=== PATIENT | female | born 1980 | race Caucasian/White ===

== ENCOUNTER 2018-02-06 08:16 | Emergency (ER) | payer MEDICAID, OTHER ==
[2018-02-06] MEDS ORDERED: NORMAL SALINE 1000 ML 1,000 ML IV ONE (08:27)
[2018-02-06] MEDS ORDERED: ONDANSETRON 4 MG TAB.RAPDIS PO ONE (08:30)
[2018-02-06 08:35] VITALS: BP 94/78
--- NOTE | 2018-02-06 13:58 | ER Document Report ---
ED General - General Chief Complaint: ETOH Abuse Stated Complaint: POSSIBLE SEIZURE Time Seen by Provider: 02/06/18 08:26 TRAVEL OUTSIDE OF THE U.S. IN LAST 30 DAYS: No - HPI Patient complains to provider of: EtOH Notes: Patient coming in via EMS for possible seizure patient also has a history of EtOH abuse. EMS states no seizure activity noted upon arrival. Upon my evaluation patient is lying on her stomach sleeping easily arousable. Patient does smell of alcohol. Patient upon awakening there is demanding Ativan and Valium as that she states that she is going through withdrawals. Patient states last time she had any alcohol drink was approximately 1 hour prior to her arrival here to the ER. Patient also states she is having some nausea vomiting. Patient otherwise is disheveled smells of alcohol no signs of any obvious distress no signs of obvious EtOH withdrawals - Related Data Allergies/Adverse Reactions: hydromorphone HCl [From Dilaudid] Allergy (Verified 07/08/12 19:48) itching morphine [Morphine] Adverse Reaction (Verified 07/08/12 19:48) Nausea Past Medical History - Social History Smoking Status: Current Every Day Smoker Frequency of alcohol use: Heavy Drug Abuse: None Family History: Reviewed & Not Pertinent Patient has suicidal ideation: No Patient has homicidal ideation: No Neurological Medical History: Reports: Hx Migraine, Hx Seizures - ETOH withdrawal Renal/ Medical History: Reports: Hx Peritoneal Dialysis GI Medical History: Reports: Hx Gastroesophageal Reflux Disease Psychiatric Medical History: Reports: Hx Bipolar Disorder, Hx Depression Past Surgical History: Reports: Hx Cholecystectomy - Immunizations Hx Diphtheria, Pertussis, Tetanus Vaccination: Yes Review of Systems - Review of Systems Constitutional: No symptoms reported EENT: No symptoms reported Cardiovascular: No symptoms reported Respiratory: No symptoms reported Gastrointestinal: Nausea, Vomiting Genitourinary: No symptoms reported Female Genitourinary: No symptoms reported Musculoskeletal: No symptoms reported Skin: No symptoms reported Hematologic/Lymphatic: No symptoms reported Neurological/Psychological: No symptoms reported -: Yes All other systems reviewed and negative Physical Exam - Vital signs Vitals: Temp Pulse Resp BP Pulse Ox 98.1 F 101 H 20 94/78 L 98 02/06/18 08:34 02/06/18 08:34 02/06/18 08:34 02/06/18 08:34 02/06/18 08:34 Interpretation: Normal - General General appearance: Alert, Other - Disheveled Notes: Smells of alcohol - HEENT Head: Normocephalic, Atraumatic Eyes: Normal Pupils: PERRL - Respiratory Respiratory status: No respiratory distress Chest status: Nontender Breath sounds: Normal Chest palpation: Normal - Cardiovascular Rhythm: Regular Heart sounds: Normal auscultation Murmur: No - Abdominal Inspection: Normal Distension: No distension Bowel sounds: Normal Tenderness: Nontender Organomegaly: No organomegaly - Back Back: Normal, Nontender - Extremities General upper extremity: Normal inspection, Nontender, Normal color, Normal ROM , Normal temperature General lower extremity: Normal inspection, Nontender, Normal color, Normal ROM , Normal temperature, Normal weight bearing. No: Margarita's sign - Neurological Neuro grossly intact: Yes Cognition: Normal [place] Coma Scale Eye Opening: Spontaneous John Coma Scale Verbal: Oriented [place] Coma Scale Motor: Obeys Commands John Coma Scale Total: 15 Speech: Normal Motor strength normal: LUE, RUE, LLE, RLE Sensory: Normal - Psychological Associated symptoms: Normal affect, Normal mood - Skin Skin Temperature: Warm Skin Moisture: Dry Skin Color: Normal Course - Re-evaluation Re-evalutation: 02/06/18 13:55 Patient during examination HPI process is very demanding that she receives Ativan or Valium for her acute alcohol withdrawals. Explained to the patient her examination otherwise normal self or smelling of alcohol patient complains of nausea vomiting states that the patient that we will give her medications to help out with her nausea vomiting however at this time and to receive her laboratory values and monitor the patient for some time that would not give her any Ativan or Valium that she requests. Patient was very upset this is explained to the patient that if she has a long one that can come pick her up we will discharge her home. I was later informed by the nursing staff that the patient has phoned a friend and that the patient is currently walking down the [place] leaving the ER electing not to wait for her her discharge papers. - Vital Signs Vital signs: Temp Pulse Resp BP Pulse Ox 98.1 F 101 H 20 94/78 L 98 02/06/18 08:34 02/06/18 08:34 02/06/18 08:34 02/06/18 08:34 02/06/18 08:34 Discharge - Discharge Clinical Impression: ETOH abuse, Nausea vomiting per History Condition: Stable Disposition: HOME, SELF-CARE Instructions: Acute Alcohol Intoxication ([facility]), Chronic Alcoholism ([facility]), Nausea or Vomiting, Nonspecific ([facility]) Additional Instructions: Follow-up with your primary care physician return to ER symptoms worsen.
== END 2018-02-06 09:04 | disposition home or self-care (01) ==
LOC: ER 08:16
DX: F10.10 Alcohol abuse, uncomplicated (principal); R11.2 Nausea with vomiting, unspecified; F17.200 Nicotine dependence, unspecified, uncomplicated; Z79.899 Other long term (current) drug therapy
CPT/HCPCS: 36415; 99284

== ENCOUNTER 2018-03-30 00:12 | Emergency (ER) | payer OTHER, MEDICAID ==
[2018-03-30 00:27] VITALS: BP 118/83
== END 2018-03-30 04:00 | disposition left against medical advice (07) ==
LOC: ER 00:12
DX: R06.09 Other forms of dyspnea (principal); R00.2 Palpitations; Z53.21 Procedure and treatment not carried out due to patient leaving prior to being seen by health care provider

== ENCOUNTER 2018-03-30 06:21 | Emergency (ER) | payer MEDICAID, OTHER ==
[2018-03-30] MEDS ORDERED: DIPHENHYDRAMINE HCL 50 MG CAPSULE PO ONE (07:11)
[2018-03-30] MEDS ORDERED: NORMAL SALINE 1000 ML 1,000 ML IV ONE (07:20)
--- NOTE | 2018-03-30 07:20 | ER Document Report ---
ED General - General Chief Complaint: Probable Seizure Stated Complaint: POSSIBLE SEIZURE Time Seen by Provider: 03/30/18 06:33 Notes: 37-year-old female presents to the ER after what is thought to be possibly seizure. The patient supposed be on Ativan for her anxiety and panic attacks. She recently moved from [place] and left her prescription up there. She stated tonight she went to the bathroom and had an episode where she may have passed out. The patient denies any chest pain or shortness of breath denies extremity numbness tingling or weakness. Patient stated that she really needs an Ativan. The patient denies any extremity numbness tingling or weakness denies chest pain or shortness of breath she feels a little achy from the seizure. TRAVEL OUTSIDE OF THE U.S. IN LAST 30 DAYS: No - Related Data Allergies/Adverse Reactions: hydromorphone HCl [From Dilaudid] Allergy (Verified 03/30/18 07:07) itching morphine [Morphine] Adverse Reaction (Verified 03/30/18 07:07) Nausea Past Medical History - Social History Smoking Status: Current Every Day Smoker Frequency of alcohol use: Heavy Family History: Reviewed & Not Pertinent Patient has suicidal ideation: No Patient has homicidal ideation: No Neurological Medical History: Reports: Hx Migraine, Hx Seizures - ETOH withdrawal Renal/ Medical History: Denies: Hx Peritoneal Dialysis GI Medical History: Reports: Hx Gastroesophageal Reflux Disease Psychiatric Medical History: Reports: Hx Bipolar Disorder, Hx Depression - anxiety; PTSD Past Surgical History: Reports: Hx Cholecystectomy, Hx Orthopedic Surgery - wrist - Immunizations Hx Diphtheria, Pertussis, Tetanus Vaccination: Yes Review of Systems - Review of Systems Cardiovascular: denies: Chest pain, Dyspnea Gastrointestinal: denies: Nausea, Vomiting Musculoskeletal: denies: Back pain Neurological/Psychological: Anxiety, Seizure -: Yes All other systems reviewed and negative Physical Exam - Vital signs Vitals: Resp BP Pulse Ox 14 96/76 L 97 03/30/18 06:27 03/30/18 06:27 03/30/18 06:27 - Notes Notes: GENERAL_APPEARANCE: well_nourished but thin, alert, cooperative, anxious VITALS: reviewed, see vital signs table. HEAD: no_swelling\tenderness on the head. EYES: PERRL, EOMI, conjunctiva_clear. NOSE: no_nasal_discharge. MOUTH: Slight decreased moisture. THROAT: no_throat_inflammation, no_airway_obstruction. no_lymphadenopathy NECK: supple, no_neck_tenderness, (-)thyromegaly. BACK: no_back_tenderness. CHEST_WALL: no_chest_tenderness. LUNGS: no_wheezing, no_rales, no_rhonchi, (-)accessory muscle use, good air exchange bilateral. HEART: normal_rate, normal_rhythm, normal_S1, normal_S2, (-)S3, (-)S4, no_ murmur, no_rub. ABDOMEN: normal_BS, soft, no_abd_tenderness, (-)guarding, (-)rebound, no_ organomegaly, no_abd_masses. EXTREMITIES: good pulses in all_extremities, no_swelling\tenderness in the extremities, no_edema. SKIN: warm, dry, good_color, no_rash. MENTAL_STATUS: speech_clear, oriented_X_3, normal_affect, responds_ appropriately to questions. NEURO: Neg Motor or Sensory Deficits on exam, CN 2-12 intact, DTR 2+ symmetric x 4, No cerbellar signs Course - Re-evaluation Re-evalutation: 03/30/18 07:19 37-year-old female presents with possible seizure versus syncope. Patient stated she may have had a panic attack a lot of her seizures are anxiety/stress induced. States she has not had her Ativan for 4 days she is requesting Ativan. Give her a dose of Benadryl here will do some generalized labs. She is completely neurologically intact. 03/30/18 09:04 The patient is demanding Valium or Ativan. The patient's blood alcohol is well over 300. We explained to her that there is considerable danger with adding a benzodiazepine alcohol. She did not agree. Patient was given some IV fluids and Benadryl for her heart rate she was dehydrated likely from alcohol use. I implored her to stay but she ended up signing out AGAINST MEDICAL ADVICE her father who is present in the room signed the AMA form and will take her into his care he is sober and will drive her home. - Vital Signs Vital signs: Temp Pulse Resp BP Pulse Ox 98.3 F 17 108/68 99 03/30/18 06:31 03/30/18 08:02 03/30/18 08:02 03/30/18 08:02 - Laboratory Result Diagrams: 03/30/18 06:55 03/30/18 06:55 Laboratory results interpreted by me: 03/30/18 03/30/18 06:55 06:55 Hgb 10.9 L Hct 34.3 L MCV 73 L MCH 23.4 L MCHC 31.8 L RDW 21.2 H Salicylates < 1.0 L Acetaminophen < 10 L Serum Alcohol 358 H* Discharge - Discharge Disposition: AGAINST MEDICAL ADVICE
[2018-03-30 07:36] LABS: ALANINE AMINOTRANSFERASE 23 U/L (9-52); ALBUMIN 4.2 g/dL (3.5-5.0); ALKALINE PHOSPHATASE 79 U/L (38-126); ANION GAP 13 (5-19); ASPARTATE AMINO TRANSFERASE 34 U/L (14-36); BILIRUBIN,DIRECT 0.2 mg/dL (0.0-0.4); BILIRUBIN,TOTAL 0.2 mg/dL (0.2-1.3); BLOOD UREA NITROGEN 14 mg/dL (7-20); CALCIUM 8.7 mg/dL (8.4-10.2); CARBON DIOXIDE 28 mmol/L (22-30); CHLORIDE 104 mmol/L (98-107); GLUCOSE 89 mg/dL (75-110); POTASSIUM 4.4 mmol/L (3.6-5.0); SODIUM 144.5 mmol/L (137-145); TOTAL PROTEIN 7.7 g/dL (6.3-8.2)
[2018-03-30 07:39] LABS: ABSOLUTE BASOPHILS # (AUTO) 0.1 10^3/uL (0.0-0.2); ABSOLUTE EOSINOPHILS # (AUTO) 0.1 10^3/uL (0.0-0.6); ABSOLUTE LYMPHOCYTES (AUTO) 2.4 10^3/uL (0.5-4.7); ABSOLUTE MONOCYTES (AUTO) 0.4 10^3/uL (0.1-1.4); ABSOLUTE NEUT (AUTO) 3.8 10^3/uL (1.7-8.2); BASOPHILS % (AUTO) 1.1 % (0-2); EOSINOPHILS % (AUTO) 1.8 % (0-6); HEMATOCRIT 34.3 % (36.0-47.0); HEMOGLOBIN 10.9 g/dL (12.0-15.5); LYMPHOCYTES % (AUTO) 34.6 % (13-45); MEAN CORPUSCULAR HEMOGLOBIN 23.4 pg (27.0-33.4); MEAN CORPUSCULAR HGB CONC 31.8 g/dL (32.0-36.0); MEAN CORPUSCULAR VOLUME 73 fl (80-97); MONOCYTES % (AUTO) 6.4 % (3-13); PLATELET COUNT 420 10^3/uL (150-450); RED BLOOD COUNT 4.67 10^6/uL (3.72-5.28); RED CELL DISTRIBUTION WIDTH 21.2 % (11.5-14.0); SEGMENTED NEUTROPHILS % (AUTO) 56.1 % (42-78); TOTAL CELLS COUNTED % (AUTO) 100 %; WHITE BLOOD COUNT 6.8 10^3/uL (4.0-10.5)
[2018-03-30 07:44] LABS: ACETAMINOPHEN < 10 ug/mL (10-30); SALICYLATE < 1.0 mg/dL (2.0-20.0)
[2018-03-30 07:46] LABS: ALCOHOL 358 mg/dL (NONE DETECTED)
[2018-03-30] MEDS ORDERED: DIPHENHYDRAMINE HCL 50 MG/ML VIAL IV ONE (07:49)
[2018-03-30 08:06] VITALS: BP 108/68
[2018-03-30 09:00] LABS: AMORPHOUS SEDIMENT,URINE TRACE /HPF; APPEARANCE,URINE SLIGHTLY-CLOUDY; BILIRUBIN,URINE NEGATIVE (NEGATIVE); COLOR,URINE YELLOW; GLUCOSE, URINE NEGATIVE (NEGATIVE); KETONES,URINE NEGATIVE (NEGATIVE); LEUKOCYTE ESTERASE,URINE NEGATIVE (NEGATIVE); NITRITE,URINE NEGATIVE (NEGATIVE); PROTEIN,URINE NEGATIVE (NEGATIVE); UROBILINOGEN,URINE NEGATIVE mg/dL (<2.0)
[2018-03-30 09:18] LABS: URINE AMPHETAMINES SCREEN NEGATIVE; URINE BARBITURATES SCREEN NEGATIVE; URINE BENZODIAZEPINES SCREEN UNCONFIRMED POSITIVE; URINE COCAINE SCREEN NEGATIVE; URINE MARIJUANA (THC) SCREEN NEGATIVE; URINE METHADONE SCREEN NEGATIVE; URINE PHENCYCLIDINE SCREEN NEGATIVE
== END 2018-03-30 08:57 | disposition left against medical advice (07) ==
LOC: ER 06:21
DX: R40.4 Transient alteration of awareness (principal); Z53.21 Procedure and treatment not carried out due to patient leaving prior to being seen by health care provider; F17.200 Nicotine dependence, unspecified, uncomplicated
CPT/HCPCS: 99284; 96361; 96374; 36415; 80307 ×4; 84703; 85025; 80053; 81001; J1200; J7030

== ENCOUNTER 2018-03-30 15:47 | Emergency (ER) | payer SELFPAY ==
--- NOTE | 2018-03-30 15:54 | ER Document Report ---
ED Psych Disorder / Suicide - General Stated Complaint: ANXIETY Time Seen by Provider: 03/30/18 15:54 TRAVEL OUTSIDE OF THE U.S. IN LAST 30 DAYS: No - Related Data Allergies/Adverse Reactions: hydromorphone HCl [From Dilaudid] Allergy (Verified 03/30/18 07:07) itching morphine [Morphine] Adverse Reaction (Verified 03/30/18 07:07) Nausea Past Medical History - Social History Family History: Reviewed & Not Pertinent Neurological Medical History: Reports: Hx Migraine, Hx Seizures - ETOH withdrawal Renal/ Medical History: Denies: Hx Peritoneal Dialysis GI Medical History: Reports: Hx Gastroesophageal Reflux Disease Psychiatric Medical History: Reports: Hx Bipolar Disorder, Hx Depression - anxiety; PTSD Past Surgical History: Reports: Hx Cholecystectomy, Hx Orthopedic Surgery - wrist - Immunizations Hx Diphtheria, Pertussis, Tetanus Vaccination: Yes
[2018-03-30] MEDS ORDERED: RINGERS SOLUTION,LACTATED 1,000 ML IV PRN ×2 (16:10→18:00)
--- NOTE | 2018-03-30 16:13 | ER Document Report ---
ED Seizure - General Chief Complaint: Psych Problem Stated Complaint: ANXIETY Time Seen by Provider: 03/30/18 15:54 Mode of Arrival: Medic Information source: Relative - step father Notes: 37-year-old female was brought in by EMS because her stepfather called them when he found her on the bathroom floor shaking, he had to pick her up and put her in the bed. She had not been complaining of anything all day he was in the house with her she was in her bedroom watching Western movies and drinking beer. He noticed vomit on the side of the bed. He carried her to the ambulance and he states that she did not want to be brought to the hospital. She became combative in the ambulance and EMS had to give her 5 of Versed and 5 of Haldol with a four-point restraint to get her to the emergency room. He states that she lives in [place] with her ex-'s father until they get sick and tired of her drinking and they send her down here so he can straighten her out and get her off the alcohol. She is a long history of being an alcoholic we have records of her alcohol level over 400 back in 2010 and arm records here. He states that she self treats with alcohol for an anxiety. She is supposed to take Ativan, Valium, and Seroquel. He states that she is only been drinking large beers today. He had brought her to the emergency room earlier today and she was requesting Ativan. The provider explained reasons why not to treat her with benzodiazepines and she left AGAINST MEDICAL ADVICE advice and he drove her home. - Related Data Allergies/Adverse Reactions: hydromorphone HCl [From Dilaudid] Allergy (Verified 03/30/18 07:07) itching morphine [Morphine] Adverse Reaction (Verified 03/30/18 07:07) Nausea Past Medical History - General Information source: Relative Cannot obtain history due to: Other - Somnolent and unresponsive - Social History Smoking Status: Current Every Day Smoker Family History: Reviewed & Not Pertinent Neurological Medical History: Reports: Hx Migraine, Hx Seizures - ETOH withdrawal Renal/ Medical History: Denies: Hx Peritoneal Dialysis GI Medical History: Reports: Hx Gastroesophageal Reflux Disease Psychiatric Medical History: Reports: Hx Bipolar Disorder, Hx Depression - anxiety; PTSD Past Surgical History: Reports: Hx Cholecystectomy, Hx Orthopedic Surgery - wrist - Immunizations Hx Diphtheria, Pertussis, Tetanus Vaccination: Yes Review of Systems - Review of Systems Constitutional: No symptoms reported EENT: No symptoms reported Cardiovascular: No symptoms reported Respiratory: No symptoms reported Gastrointestinal: No symptoms reported Genitourinary: No symptoms reported Female Genitourinary: No symptoms reported Musculoskeletal: No symptoms reported Skin: No symptoms reported Hematologic/Lymphatic: No symptoms reported Neurological/Psychological: No symptoms reported Physical Exam - Vital signs Vitals: Resp BP 19 104/75 03/30/18 15:55 03/30/18 15:55 Interpretation: Normal - Notes Notes: unconscious, had been given versed 5mg and haldol 5mg due to combativeness in the ambulance - General General appearance: Unresponsive In distress: None - HEENT Head: Normocephalic, Atraumatic Eyes: Normal Conjunctiva: Normal Pupils: PERRL Mucous membranes: Dry - Respiratory Respiratory status: No respiratory distress, Other - snoring Chest status: Nontender Breath sounds: Normal Chest palpation: Normal - Cardiovascular Rhythm: Regular Heart sounds: Normal auscultation Murmur: No - Abdominal Inspection: Normal Distension: No distension Bowel sounds: Normal Tenderness: Nontender Organomegaly: No organomegaly - Back Back: Normal, Nontender - Extremities General upper extremity: Normal inspection, Nontender, Normal color, Normal ROM , Normal temperature General lower extremity: Normal inspection, Nontender, Normal color, Normal ROM , Normal temperature, Normal weight bearing. No: Margarita's sign - Neurological Neuro grossly intact: Yes Cognition: Normal Orientation: AAOx4 [place] Coma Scale Eye Opening: Spontaneous [place] Coma Scale Verbal: Oriented [place] Coma Scale Motor: Obeys Commands [place] Coma Scale Total: 15 Speech: Normal Motor strength normal: LUE, RUE, LLE, RLE Sensory: Normal - Psychological Associated symptoms: Normal affect, Normal mood - Skin Skin Temperature: Warm Skin Moisture: Dry Skin Color: Normal Course - Re-evaluation Re-evalutation: 03/30/18 17:04 Stepfather's phone number is [phone] and his name is Ra 03/30/18 18:06 I was able to arouse the patient by shaking her and she is stating that she wants a sandwich and something to drink. Patient drank some SierraMist, I amd waiting for the lab work to be resulted. 03/30/18 18:25 Patient is now awake and eating peanut butter crackers dye shen javy and applesauce. She knows that she is in the hospital in [place]. I consulted with Dr. 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 His or her stepfather is going to check the house to see how much she is consuming she wants to go home and have the paperwork done. I have given them the outpatient resources for psych and detox. She states she has been in DTs before. Heating noodle /chicken soup up for her - Vital Signs Vital signs: Temp Pulse Resp BP Pulse Ox 15 96/67 L 95 03/30/18 18:01 03/30/18 18:01 03/30/18 18:01 - Laboratory Result Diagrams: 03/30/18 16:41 03/30/18 16:41 Laboratory results interpreted by me: 03/30/18 03/30/18 16:41 16:41 Hgb 10.5 L Hct 32.9 L MCV 73 L MCH 23.2 L MCHC 31.8 L RDW 21.6 H Total Bilirubin 0.1 L AST 39 H Salicylates < 1.0 L Acetaminophen < 10 L Serum Alcohol 357 H* - EKG Interpretation by Me EKG shows normal: Sinus rhythm Rate: Tachycardia - 106 Rhythm: NSR Discharge - Discharge Clinical Impression: Alcoholic, ETOH abuse, possible seizure Anemia Qualifiers: Anemia type: unspecified type Qualified Code(s): D64.9 - Anemia, unspecified Condition: Stable Disposition: HOME, SELF-CARE Instructions: Chronic Alcoholism ([facility]) Additional Instructions: You have been given the resources for outpatient psych and detox decrease the amount of alcohol that she consume Return to the emergency room for any concerns Referrals: SABINE ADEN MD [ACTIVE STAFF] - Follow up as needed
[2018-03-30 16:55] LABS: ABSOLUTE BASOPHILS # (AUTO) 0.1 10^3/uL (0.0-0.2); ABSOLUTE EOSINOPHILS # (AUTO) 0.1 10^3/uL (0.0-0.6); ABSOLUTE LYMPHOCYTES (AUTO) 2.3 10^3/uL (0.5-4.7); ABSOLUTE MONOCYTES (AUTO) 0.3 10^3/uL (0.1-1.4); ABSOLUTE NEUT (AUTO) 3.7 10^3/uL (1.7-8.2); BASOPHILS % (AUTO) 1.1 % (0-2); HEMATOCRIT 32.9 % (36.0-47.0); HEMOGLOBIN 10.5 g/dL (12.0-15.5); MEAN CORPUSCULAR HEMOGLOBIN 23.2 pg (27.0-33.4); MEAN CORPUSCULAR HGB CONC 31.8 g/dL (32.0-36.0); MEAN CORPUSCULAR VOLUME 73 fl (80-97); MONOCYTES % (AUTO) 5.1 % (3-13); PLATELET COUNT 405 10^3/uL (150-450); RED CELL DISTRIBUTION WIDTH 21.6 % (11.5-14.0); SEGMENTED NEUTROPHILS % (AUTO) 56.8 % (42-78); TOTAL CELLS COUNTED % (AUTO) 100 %; WHITE BLOOD COUNT 6.4 10^3/uL (4.0-10.5)
--- NOTE | 2018-03-30 17:12 | RADIOLOGY REPORT (SQ) ---
EXAM DESCRIPTION: CHEST SINGLE VIEW COMPLETED DATE/TIME: 03/30/2018 4:59 pm REASON FOR STUDY: vomiting, etoh COMPARISON: None. EXAM PARAMETERS: NUMBER OF VIEWS: One view. TECHNIQUE: Single frontal radiographic view of the chest acquired. RADIATION DOSE: NA LIMITATIONS: None. FINDINGS: LUNGS AND PLEURA: No opacities, masses or pneumothorax. No pleural effusion. MEDIASTINUM AND HILAR STRUCTURES: No masses. Contour normal. HEART AND VASCULAR STRUCTURES: Heart normal in size. Normal vasculature. BONES: No acute findings. HARDWARE: None in the chest. OTHER: No other significant finding. IMPRESSION: NO ACUTE RADIOGRAPHIC FINDING IN THE CHEST. TECHNICAL DOCUMENTATION: JOB ID: [id number] [email or web address]- All Rights Reserved Reading location - IP/workstation name: [email or web address]
[2018-03-30 18:02] LABS: ALANINE AMINOTRANSFERASE 30 U/L (9-52); ALBUMIN 4.1 g/dL (3.5-5.0); ALKALINE PHOSPHATASE 78 U/L (38-126); ANION GAP 13 (5-19); ASPARTATE AMINO TRANSFERASE 39 U/L (14-36); BILIRUBIN,DIRECT 0.1 mg/dL (0.0-0.4); BILIRUBIN,TOTAL 0.1 mg/dL (0.2-1.3); BLOOD UREA NITROGEN 17 mg/dL (7-20); CALCIUM 8.4 mg/dL (8.4-10.2); CARBON DIOXIDE 28 mmol/L (22-30); CHLORIDE 102 mmol/L (98-107); GLUCOSE 90 mg/dL (75-110); LIPASE 169.2 U/L (23-300); POTASSIUM 4.4 mmol/L (3.6-5.0); SODIUM 143.2 mmol/L (137-145); TOTAL PROTEIN 7.3 g/dL (6.3-8.2)
[2018-03-30 18:10] VITALS: BP 96/67
[2018-03-30 18:15] LABS: ACETAMINOPHEN < 10 ug/mL (10-30); SALICYLATE < 1.0 mg/dL (2.0-20.0)
[2018-03-30 18:17] LABS: ALCOHOL 357 mg/dL (NONE DETECTED)
[2018-03-30 18:17] LABS: APPEARANCE,URINE SLIGHTLY-CLOUDY; BILIRUBIN,URINE NEGATIVE (NEGATIVE); COLOR,URINE STRAW; GLUCOSE, URINE NEGATIVE (NEGATIVE); KETONES,URINE NEGATIVE (NEGATIVE); LEUKOCYTE ESTERASE,URINE NEGATIVE (NEGATIVE); NITRITE,URINE NEGATIVE (NEGATIVE); PROTEIN,URINE NEGATIVE (NEGATIVE); URINE SPECIFIC GRAVITY 1.005; UROBILINOGEN,URINE NEGATIVE mg/dL (<2.0)
[2018-03-30 18:37] LABS: URINE AMPHETAMINES SCREEN NEGATIVE; URINE BARBITURATES SCREEN NEGATIVE; URINE BENZODIAZEPINES SCREEN UNCONFIRMED POSITIVE; URINE COCAINE SCREEN NEGATIVE; URINE MARIJUANA (THC) SCREEN NEGATIVE; URINE METHADONE SCREEN NEGATIVE; URINE PHENCYCLIDINE SCREEN NEGATIVE
--- NOTE | 2018-03-30 19:49 | EKG REPORT ---
SEVERITY:- OTHERWISE NORMAL ECG - SINUS TACHYCARDIA : Confirmed by: J Carlos Garsia MD 30-Mar-2018 19:48:16
== END 2018-03-30 19:07 | disposition home or self-care (01) ==
LOC: ER 15:47
DX: D64.9 Anemia, unspecified (principal); F10.10 Alcohol abuse, uncomplicated; F17.200 Nicotine dependence, unspecified, uncomplicated
CPT/HCPCS: 93005; 99284; 96360; 36415; 80307 ×4; 83690; 85025; 80053; 81001; 71045; 93010; J7120

== ENCOUNTER 2018-04-07 17:28 | Emergency (ER) | payer SELFPAY ==
[2018-04-07 17:48] VITALS: BP 92/81
--- NOTE | 2018-04-07 17:49 | ER Document Report ---
ED Substance Abuse / Acc. OD - General Chief Complaint: ETOH Abuse Stated Complaint: ETOH WITHDRAWAL Time Seen by Provider: 04/07/18 17:31 Mode of Arrival: Medic Information source: Patient, Relative Notes: 37-year-old male presents to ED for alcohol abuse. She was brought in by EMS stating that she needed Ativan because she was shaken. Patient has a problem with alcohol abuse. She is alert and oriented. Her vital signs are stable. She is answering all questions appropriately. TRAVEL OUTSIDE OF THE U.S. IN LAST 30 DAYS: No - HPI Patient complains to provider of: Alcohol abuse Onset: Other - Chronic Quality of pain: No pain Severity: None Pain Level: Denies Similar symptoms previously: Yes Recently seen / treated by doctor: Yes - Related Data Allergies/Adverse Reactions: hydromorphone HCl [From Dilaudid] Allergy (Verified 03/30/18 07:07) itching morphine [Morphine] Adverse Reaction (Verified 03/30/18 07:07) Nausea Past Medical History - General Information source: Patient, Relative - Social History Smoking Status: Current Every Day Smoker Frequency of alcohol use: Heavy Drug Abuse: None Lives with: Family Family History: Reviewed & Not Pertinent Patient has suicidal ideation: No Patient has homicidal ideation: No - Past Medical History Cardiac Medical History: Reports: None Pulmonary Medical History: Reports: None EENT Medical History: Reports: None Neurological Medical History: Reports: Hx Migraine, Hx Seizures - ETOH withdrawal Endocrine Medical History: Reports: None Renal/ Medical History: Reports: None Malignancy Medical History: Reports: None GI Medical History: Reports: Hx Gastroesophageal Reflux Disease Musculoskeletal Medical History: Reports None Skin Medical History: Reports None Psychiatric Medical History: Reports: Hx Bipolar Disorder, Hx Depression - anxiety; PTSD Traumatic Medical History: Reports: None Infectious Medical History: Reports: None Past Surgical History: Reports: Hx Cholecystectomy, Hx Orthopedic Surgery - wrist - Immunizations Hx Diphtheria, Pertussis, Tetanus Vaccination: Yes Review of Systems - Review of Systems Notes: Patient states she is having withdrawals and needs Ativan. She is come in for the same complaint multiple times. Patient's vital signs are stable. Patient is alert and oriented answering all questions appropriately. Patient is present with her [id number]. Her [id number] did drive to the emergency room. Constitutional: No symptoms reported EENT: No symptoms reported Cardiovascular: No symptoms reported Respiratory: No symptoms reported Gastrointestinal: No symptoms reported Genitourinary: No symptoms reported Female Genitourinary: No symptoms reported Musculoskeletal: No symptoms reported Skin: No symptoms reported Hematologic/Lymphatic: No symptoms reported Neurological/Psychological: No symptoms reported Physical Exam - Vital signs Vitals: Resp BP Pulse Ox 20 94/62 L 98 04/07/18 17:33 04/07/18 17:33 04/07/18 17:33 Interpretation: Normal - General General appearance: Appears well, Alert In distress: None - HEENT Head: Normocephalic, Atraumatic Eyes: Normal Pupils: PERRL - Respiratory Respiratory status: No respiratory distress Chest status: Nontender Breath sounds: Normal Chest palpation: Normal - Cardiovascular Rhythm: Regular Heart sounds: Normal auscultation Murmur: No - Abdominal Inspection: Normal Distension: No distension Bowel sounds: Normal Tenderness: Nontender Organomegaly: No organomegaly - Back Back: Normal, Nontender - Extremities General upper extremity: Normal inspection, Nontender, Normal color, Normal ROM , Normal temperature General lower extremity: Normal inspection, Nontender, Normal color, Normal ROM , Normal temperature, Normal weight bearing. No: Margarita's sign - Neurological Neuro grossly intact: Yes Cognition: Normal Orientation: AAOx4 [place] Coma Scale Eye Opening: Spontaneous [place] Coma Scale Verbal: Oriented [place] Coma Scale Motor: Obeys Commands [place] Coma Scale Total: 15 Speech: Normal Motor strength normal: LUE, RUE, LLE, RLE Sensory: Normal - Psychological Associated symptoms: Normal affect, Agitated - Skin Skin Temperature: Warm Skin Moisture: Dry Skin Color: Normal Course - Re-evaluation Re-evalutation: 04/07/18 18:27 Patient was discharged home in the care of her [id number]. Patient was taken to the her [id number]-iph's car and he will take her home. Patient's vital signs were stable. Patient is alert and oriented. Patient was discharged home to follow-up with her primary doctor and the detox center. - Vital Signs Vital signs: Temp Pulse Resp BP Pulse Ox 20 92/81 L 98 04/07/18 17:33 04/07/18 17:34 04/07/18 17:33 Discharge - Discharge Clinical Impression: ETOH abuse Condition: Stable Disposition: HOME, SELF-CARE Additional Instructions: You were seen today for alcohol abuse. You had been drinking alcohol today and you are not withdrawing if you have alcohol that you have been drinking today You need to follow-up with your primary doctor. You have been given information for outpatient psych and detox. Please slowly decrease the amount of alcohol you consume. FOLLOW-UP CARE: If you have been referred to a physician for follow-up care, call the physician s office for an appointment as you were instructed or within the next two days. If you experience worsening or a significant change in your symptoms, notify the physician immediately or return to the Emergency Department at any time for re-evaluation. Referrals: SABINE ADEN MD [ACTIVE STAFF] - Follow up as needed
== END 2018-04-07 18:02 | disposition home or self-care (01) ==
LOC: ER 17:28
DX: F10.129 Alcohol abuse with intoxication, unspecified (principal); F17.210 Nicotine dependence, cigarettes, uncomplicated; F43.10 Post-traumatic stress disorder, unspecified; K21.9 Gastro-esophageal reflux disease without esophagitis; Z86.59 Personal history of other mental and behavioral disorders
CPT/HCPCS: 99285